=== PATIENT | male | born 1935 | race Caucasian/White ===

== ENCOUNTER 2023-12-30 11:12 | Outpatient (CLI) | payer MEDICARE, BC, SELFPAY ==
[2023-12-30 11:52] LABS: Appearance Urine Clear (Clear); Bilirubin Urine Negative (Negative); Blood Urine Negative (Negative); Color Urine Dark yellow (Yellow); Glucose Urine Negative (Negative); Ketones Urine Negative (Negative); Leukocyte Esterase Urine Negative (Negative); Nitrite Urine Negative (Negative); Protein Urine Negative (Negative); Urobilinogen Urine 0.2 (0.2-1.0)
[2023-12-30 12:00] LABS: Amorphous Sediment Urine Few; RBC Urine 0-2 (0-2); WBC Urine 0-2 (0-5)
== END 2023-12-30 11:13 | disposition home or self-care (01) ==
PROVIDERS: Visit Provider Radiology Radiation Oncology
DX: R35.0 Frequency of micturition (principal)
CPT/HCPCS: 81001; 87086

== ENCOUNTER 2024-06-09 11:20 | Outpatient (RCR) | payer MEDICARE, BC, SELFPAY ==
--- NOTE | 2024-06-04 10:49 | ONC.NURNOTE ---
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
[2024-06-09 12:13] LABS: Estimated Glomerular Filt Rate 72 ml/min
== END 2024-12-06 23:59 | disposition home or self-care (01) ==
LOC: CCIC 11:20
PROVIDERS: Visit Provider Clinical Nurse Specialist
DX: C43.59 Malignant melanoma of other part of trunk (principal)
CPT/HCPCS: 36415; 82565; 99211